=== PATIENT | male | born 1945 | race Caucasian/White ===

== ENCOUNTER 2016-11-20 16:20 | Emergency (ER) | payer MEDICARE, OTHER ==
[~2016-11-20] VITALS: Ht 172.7 cm; Wt 79.4 kg
[2016-11-20] MEDS ORDERED: TOPROL XL100 MG (16:35)
[2016-11-20] MEDS ORDERED: TOPROL XL100 MG PO (16:35)
[2016-11-20] MEDS ORDERED: ELIQUIS5 MG PO (16:36)
[2016-11-20] MEDS ORDERED: OXYCODONE HCL5 M1 PO (19:40)
[2016-11-20] MEDS ORDERED: ZOFRAN ODT4 MG PO (19:40)
[2016-11-20] MEDS ORDERED: CIPRO500 MG PO (19:40)
== END 2016-11-20 19:54 | disposition home or self-care (01) ==
LOC: ED 16:20
DX: K52.9 Noninfective gastroenteritis and colitis, unspecified (principal); I48.91 Unspecified atrial fibrillation; I10 Essential (primary) hypertension; Z79.899 Other long term (current) drug therapy
CPT/HCPCS: 74176; 74177; 80053; 85025; 85610; 85730; 86850; 86900; 86901; 99284; Q9967

== ENCOUNTER 2016-11-21 16:36 | Emergency (ER) | payer MEDICARE, OTHER ==
[~2016-11-21] VITALS: Ht 172.7 cm; Wt 79.4 kg
[~2016-11-21 16:36] MED LIST: CIPRO500 MG PO; ELIQUIS5 MG PO; OXYCODONE HCL5 M1 PO; TOPROL XL100 MG; TOPROL XL100 MG PO; ZOFRAN ODT4 MG PO
== END 2016-11-21 17:20 | disposition home or self-care (01) ==
LOC: ED 16:36
DX: K52.9 Noninfective gastroenteritis and colitis, unspecified (principal); I48.91 Unspecified atrial fibrillation; I10 Essential (primary) hypertension; Z98.890 Other specified postprocedural states; Z79.899 Other long term (current) drug therapy
CPT/HCPCS: 99282

== ENCOUNTER 2020-07-26 08:55 | Day surgery (SDC) | payer MEDICARE ==
[~2020-07-26] VITALS: Ht 172.7 cm; Wt 80.8 kg
[~2020-07-26 08:55] MED LIST changes: +ADVAIR HFA 115-12 GM INH; +CETIRIZINE HCL10 MG PO
--- NOTE | 2020-07-26 12:07 | NUR ---
07/26/20 1207 Belle Patel 1203- PT ARRIVES TO PACU AROUSABLE TO NOXIOUS STIMULI. RESP EVEN AND UNLABORED. OXYGEN SAT HIGH 90'S TO 100% ON 2L VIA OXYMASK.
[2020-07-26] MEDS ORDERED: HYDROCODON-ACE1 EAC8 PO (12:24)
--- NOTE | 2020-07-29 07:17 | OR ---
[facility] [address] [place], [place] [address] Signed DATE OF OPERATION: 07/26/2020 SURGEON: Gordo Malcolm MD PREOPERATIVE DIAGNOSIS: Right medial subcuticular scapular mass (3 cm). POSTOPERATIVE DIAGNOSIS: Epidermal cyst. PROCEDURE: Excision of epidermal cyst. ESTIMATED BLOOD LOSS: None. INDICATIONS: Raul is a 74-year-old gentleman, asked to see me for a subcutaneous mass over the superior medial aspect of the right scapula. 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 We can see various surgical scars on the skin. 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 He said this subcutaneous mass started growing last year and now it is causing pain. It is very difficult for him to work and lie on his back and so forth. He went to his primary care provider. He was then asked to see me to have it removed. In the office, I explained to Raul the nature of incision required to remove that lesion. If indeed this proved to be an epidermal cyst, the overlying skin is often quite thin. Sometimes it breaks down and has to heal in secondarily. He understands there is risk including, but not limited to bleeding, infection, scarring, change in contour of the skin as well as possible need for additional surgeries based on pathology results. He understands expected intraop and postop course. He expressed understanding and wished to proceed. DESCRIPTION OF PROCEDURE: I met with Raul in our preop area along with his lifelong significant other. We all identified the area quite readily and marked it appropriately. After this, Raul was taken in the operating room and placed in the left lateral decubitus position with appropriate padding and monitoring. He was given monitored anesthesia care per our nurse molding line operator. Local anesthetic was injected around and underneath the lesion. A vertical linear incision was made over the lesion, carried around the lesion very carefully with the help of cautery and bluntly with the hemostat. That proved to be an Electronically Signed By: GORDO MALCOLM MD 07/29/20 0717 PATIENT NAME: RAUL GONZALEZ OPERATIVE REPORT DATE OF : 41 REPORT #: [id number] PHYSICIAN: GORDO MALCOLM MD PCP: FRANCES AREVALO MD REPORT IS CONFIDENTIAL AND NOT TO BE RELEASED WITHOUT AUTHORIZATION [facility] [address] [place] [address] Signed epidermal cyst. The overlying skin was very thin. We closed the dermis with interrupted 3-0 subcuticular Monocryl sutures. We used 3-0 nylon suture to help close some of the midportion of that incision because the skin was so thin. We then used 5-0 fast absorbing plain gut suture to close the skin edges. Dry gauze and tape were then applied. Raul was then rotated in the supine position and taken to recovery room in stable condition. Gordo Malcolm MD ALB/MODL /[id number] cc: MD Gordo Mclaughlin MD Copies: GORDO MALCOLM MD ~ Electronically Signed By: GORDO MALCOLM MD 07/29/20 0717 PATIENT NAME: RAUL GONZALEZ OPERATIVE REPORT DATE OF : 41 REPORT #: [id number] PHYSICIAN: GORDO MALCOLM MD PCP: FRANCES AREVALO MD REPORT IS CONFIDENTIAL AND NOT TO BE RELEASED WITHOUT AUTHORIZATION
== END 2020-07-26 12:55 | disposition home or self-care (01) ==
LOC: DS 08:55
PROVIDERS: ATTEND Colon & Rectal Surgery
PROC: 0J970ZX Drainage of Back Subcutaneous Tissue and Fascia, Open Approach, Diagnostic (ICD-10-PCS; principal; 2020-07-26 11:15)
DX: L72.0 Epidermal cyst (principal); J45.909 Unspecified asthma, uncomplicated; I10 Essential (primary) hypertension; I48.0 Paroxysmal atrial fibrillation; Z79.01 Long term (current) use of anticoagulants; Z85.828 Personal history of other malignant neoplasm of skin; Z86.19 Personal history of other infectious and parasitic diseases; Z87.891 Personal history of nicotine dependence; Z91.048 Other nonmedicinal substance allergy status; Z91.09 Other allergy status, other than to drugs and biological substances
CPT/HCPCS: 00400; 88304; J0690; J1644; J1885; J2001; J2250; J2704; J7121

== ENCOUNTER 2021-08-08 14:18 | Emergency (ER) | payer MEDICARE ==
[~2021-08-08] VITALS: Ht 172.7 cm; Wt 79.4 kg
[~2021-08-08 14:18] MED LIST changes: +HYDROCODON-ACE1 EAC8 PO
--- NOTE | 2021-08-10 08:58 | EKG ---
[facility] [address] [place] [address] Signed Poor data quality, interpretation may be adversely affected Normal sinus rhythm Septal infarct (cited on or before 23-JUL-2020) Abnormal ECG When compared with ECG of 23-JUL-2020 13:46, Nonspecific T wave abnormality now evident in Lateral leads Confirmed by LEN REMY MD ([id number]) on 08/10/2021 8:57:48 AM Electronically Signed By: LEN REMY MD 08/10/21 0858 PATIENT NAME: RAUL GONZALEZ Electrocardiogram DATE OF : 41 PHYSICIAN: LEN REMY MD REPORT #: [id number] REPORT IS CONFIDENTIAL AND NOT TO BE RELEASED WITHOUT AUTHORIZATION
== END 2021-08-08 18:47 | disposition home or self-care (01) ==
LOC: ED 14:18
DX: I48.0 Paroxysmal atrial fibrillation (principal); I10 Essential (primary) hypertension; Z79.899 Other long term (current) drug therapy; Z79.01 Long term (current) use of anticoagulants; Z79.51 Long term (current) use of inhaled steroids
CPT/HCPCS: 93005; 93010; 99284-25

== ENCOUNTER 2023-03-03 06:58 | Day surgery (SDC) | payer MEDICARE, OTHER ==
[2023-02-24 10:17] VITALS: BP 151/76
[~2023-03-03] VITALS: Ht 172.7 cm; Wt 79.5 kg
[~2023-03-03 06:58] MED LIST changes: +AMOXICILLIN500 M1 PO; +DOXYCYCLINE HY100 MG PO; +METOPROLOL SUCC50 MG PO; +PREDNISONE20 MG PO; +VENTOLIN HFA18 GM INH; +ZYRTEC10 MG PO
[2023-03-03 07:06] VITALS: BP 151/62; BP 190/88
--- NOTE | 2023-03-03 09:21 | NUR ---
03/03/23 0921 Galina Schmitz 0915-PT TO PACU IN LL POSITION. EYES CLOSED. MOVES UPPER EXTREMITIES BUT DOES NOT FOLLOW COMMANDS. BREATHING EASY AND UNLABORED. SPO2 >95% ON ROOM AIR. 0920-PT CONTINUES TO SLEEP IN LL POSITION. EYES CLOSED. PT REPOSITIONS SELF TO COMFORT BUT DOES NOT OPEN EYES OR FOLLOW COMMANDS. BREATHING EASY AND UNLAOBRED. SPO2 >95% ON ROOM AIR.
[2023-03-03 09:57] VITALS: BP 123/56
--- NOTE | 2023-03-04 07:28 | OR ---
[facility] [place] [facility] [address] [place], [place] [address] Signed DATE OF OPERATION: 03/03/2023 SURGEON: Gordo Malcolm MD PREOPERATIVE DIAGNOSIS: Personal history of colonic polyps in 2017 at the age of 71. POSTOPERATIVE DIAGNOSES: 1. Multiple 4-6 mm polyps at 4-6 cm in rectum. 2. 5 mm polyps x2 at 10 cm in rectum. 3. 5 mm polyp at 22 cm in sigmoid colon. 4. Small lipoma at 40 cm in left colon. 5. 6 mm polyp at 38 cm in left colon. 6. Moderate diverticulosis. 7. Moderate internal and external hemorrhoids. PROCEDURE: Colonoscopy with hot biopsy. ESTIMATED BLOOD LOSS: None. INDICATIONS: Raul is a 77-year-old gentleman asked to see me for a followup colonoscopy. He has moved down from [place], [place] to [place], [place]. He said he has no lower GI complaints. There is no family history of colon cancer or polyps. He mentions his one and only colonoscopy while in [place], [place]. This was done in 2017 at the age of 71[address] Melendrez from the [facility] [address] in [place], [place]. He thinks he had at least 12 polyps removed. He has also his hepatitis C virus treated. Clear back to 2012 CT scan said he had mild cirrhosis of his liver. Apparently, he was asked to follow up in 5 years for repeat colonoscopy. In the office, I gave him a pamphlet on colonoscopy. We reviewed the nature of the test. There is risk including, but not limited to gas bloating, crampy abdominal pain, bleeding, perforation requiring surgery, and missed diagnosis. We also reviewed the written instructions for the bowel prep line by line. Given his asthma and his paroxysmal atrial fibrillation along with recent pneumonia, he was asked to undergo monitored anesthesia care with propofol infusion. That proved to be a araiza decision today. He had expressed understanding and wished to proceed. DESCRIPTION OF PROCEDURE: Electronically Signed By: GORDO MALCOLM MD 03/04/23 0728 PATIENT NAME: RAUL GONZALEZ OPERATIVE REPORT DATE OF : 41 REPORT #: [id number] PHYSICIAN: GORDO MALCOLM MD PCP: FRANCES AREVALO MD REPORT IS CONFIDENTIAL AND NOT TO BE RELEASED WITHOUT AUTHORIZATION [facility] [place] [facility] [address] [place], [place] [address] Signed Raul was taken into our endoscopy suite and placed in the left lateral decubitus position. He was given monitored anesthesia care per our nurse grey inspector. A digital rectal exam was performed and this showed multiple small circumferential external hemorrhoids. He had good sphincter tone. There were no masses. The adult colonoscope was introduced and we immediately encountered multiple small polyps in his rectum. Most were from 4 cm up to about 6 cm. 5 or 6 of those were placed in the same jar. The others were cauterized. He also had a couple of 5 mm polyps prior in the rectum around 10 cm. They were also removed with hot biopsy forceps. He then had a 5 mm polyp at 22 cm in the sigmoid colon that we removed as well. As we advanced the scope, we can see he does have moderate sigmoid diverticulosis. They are moderate in size, few in number and scattered about. We passed the scope all the way around into the cecum itself without difficulty. His prep was quite good. We could easily see the appendiceal orifice and ileocecal valve. The scope was then slowly withdrawn. He does have a small lipoma back at 40 cm in the left colon and then at 38 cm in his left colon, he had a 6 mm polyp removed with the hot biopsy forceps. Once back down in the rectum, the scope had been retroflexed, he does have moderate internal hemorrhoid columns. After this, the gas was suctioned out and the colonoscope removed. Raul tolerated the procedure quite well. RECOMMENDATIONS: I will see Raul back in my office in 7 to 14 days to review his results. Likely he will stay on the five year plan. It looks like he will need monitored anesthesia care the rest of his life. Gordo Malcolm MD ALB/MODL /[id number] cc: MD Gordo Mclaughlin MD Electronically Signed By: GORDO MALCOLM MD 03/04/23 0728 PATIENT NAME: RAUL GONZALEZ OPERATIVE REPORT DATE OF : 41 REPORT #: [id number] PHYSICIAN: GORDO MALCOLM MD PCP: FRANCES AREVALO MD REPORT IS CONFIDENTIAL AND NOT TO BE RELEASED WITHOUT AUTHORIZATION [address] [address] Signed Copies: GORDO MALCOLM MD ~ Electronically Signed By: GORDO MALCOLM MD 03/04/23 0728 PATIENT NAME: RAUL GONZALEZ JOSEPH OPERATIVE REPORT DATE OF : 41 REPORT #: [id number] PHYSICIAN: GORDO MALCOLM MD PCP: FRANCES AREVALO MD REPORT IS CONFIDENTIAL AND NOT TO BE RELEASED WITHOUT AUTHORIZATION
--- NOTE | 2023-03-04 14:59 | PATH ---
[facility] [address] [facility] [place] [address] Signed SPECIMEN(S): A RECTAL POLYP AT 4 CM SPECIMEN(S): B RECTAL POLYP AT 10 CM SPECIMEN(S): C SIGMOID POLYP AT 22 CM SPECIMEN(S): D DESCENDING/LEFT COLON POLYP AT 38 CM SPECIMEN SOURCE: A. RECTAL POLYP AT 4 CM B. RECTAL POLYP AT 10 CM C. SIGMOID POLYP AT 22 CM D. DESCENDING/LEFT COLON POLYP AT 38 CM CLINICAL HISTORY: Previous history of polyps. FINAL PATHOLOGIC DIAGNOSIS: A. Rectal polyp at 4 cm: - Hyperplastic polyp (multiple fragments). B. Rectal polyp at 10 cm: - Hyperplastic polyp (two fragments). C. Sigmoid polyp at 22 cm: - Hyperplastic polyp (one fragment). D. Descending/left colon polyp at 38 cm: - Tubular adenoma (one fragment). JVR:saida MICROSCOPIC EXAMINATION: Histologic sections of all submitted blocks are examined by light microscopy. These findings, together with the gross examination, support the pathologic diagnosis. GROSS DESCRIPTION: A. The specimen, labeled and designated "Gayle, Spencer," and designated on the requisition "colon, rectum polypectomy at 4 cm," is received in formalin and consists of multiple rich soft polypoid tissue fragments measuring 0.2 to 0.4 cm in length and up to 0.3 cm in greatest diameter, all specimens are submitted entirely in (A1). B. The specimen, labeled and designated "Gayle, B," and designated on the requisition "colon, rectum polypectomy at 10 cm," is received in formalin and consists of two rich soft tissue fragments measuring 0.3 to 0.5 cm in length and up to 0.3 cm in greatest diameter, all specimens are submitted entirely in (B1). PATIENT NAME: RAUL GONZALEZ PATHOLOGY DATE OF : 41 REPORT #: [id number] PHYSICIAN: GREG SIN PCP: FRANCES AREVALO MD REPORT IS CONFIDENTIAL AND NOT TO BE RELEASED WITHOUT AUTHORIZATION [facility] [address] [place], [place] [address] Signed C. The specimen, labeled and designated "Gayle, B," and designated on the requisition "colon, sigmoid polypectomy at 22 cm," is received in formalin and consists of one rich soft tissue fragment measuring 0.3 x 0.3 x 0.2 cm, the specimen is submitted entirely in (C1). D. The specimen, labeled and designated "Gayle, B," and designated on the requisition "colon, descending/left polypectomy at 38 cm," is received in formalin and consists of one rich soft tissue fragment measuring 0.3 x 0.3 x 0.3 cm, the specimen is submitted entirely in (D1). MMA (under the direct supervision of a pathologist) The Gross Description was prepared using a voice recognition system. The report was reviewed for accuracy; however, sound-alike word errors, addition and/or deletions may occur. If there is any question about this report, please contact Client Services. PERFORMING LABORATORY: Technical component was performed by [facility], [address] [place] [id number] (CLIA# [id number]). Professional interpretation was performed by [facility], [address] [place] [id number] (CLIA#: [id number]). Diagnostician: Yo Truong MD Pathologist Electronically Signed 03/04/2023 Copies: ~ PATIENT NAME: RAUL GONZALEZ JOSEPH PATHOLOGY DATE OF : 41 REPORT #: [id number] PHYSICIAN: GREG PATHOLOGY PCP: FRANCES AREVALO MD REPORT IS CONFIDENTIAL AND NOT TO BE RELEASED WITHOUT AUTHORIZATION
== END 2023-03-03 10:10 | disposition home or self-care (01) ==
LOC: DS 06:58 → OPS 06:58 → DS 08:15 → OPS 10:10 → DS 10:30
PROVIDERS: ATTEND Colon & Rectal Surgery
PROC: 0DBN8ZX Excision of Sigmoid Colon, Via Natural or Artificial Opening Endoscopic, Diagnostic (ICD-10-PCS; 2023-03-03)
PROC: 0DBP8ZX Excision of Rectum, Via Natural or Artificial Opening Endoscopic, Diagnostic (ICD-10-PCS; 2023-03-03)
PROC: 0DBG8ZX Excision of Left Large Intestine, Via Natural or Artificial Opening Endoscopic, Diagnostic (ICD-10-PCS; 2023-03-03)
PROC: 0DBM8ZX Excision of Descending Colon, Via Natural or Artificial Opening Endoscopic, Diagnostic (ICD-10-PCS; principal; 2023-03-03 08:15)
DX: D12.4 Benign neoplasm of descending colon (principal); K63.5 Polyp of colon; K62.1 Rectal polyp; K57.30 Diverticulosis of large intestine without perforation or abscess without bleeding; K64.8 Other hemorrhoids; K64.4 Residual hemorrhoidal skin tags; J45.909 Unspecified asthma, uncomplicated; I48.0 Paroxysmal atrial fibrillation; I10 Essential (primary) hypertension; B18.2 Chronic viral hepatitis C; E78.5 Hyperlipidemia, unspecified; N52.9 Male erectile dysfunction, unspecified; Z79.899 Other long term (current) drug therapy; Z86.010 Personal history of colon polyps
CPT/HCPCS: 00811; 88305; J2001; J2704; J3010; J7121

== ENCOUNTER 2024-03-17 10:42 | Emergency (ER) | payer MEDICARE, OTHER ==
[~2024-03-17] VITALS: Ht 172.7 cm; Wt 81.2 kg
[2024-03-17] MEDS ORDERED: ATORVASTATIN CA40 MG PO (14:19)
[2024-03-17] MEDS ORDERED: FLUTICASONE-SA1 EAC4 (14:19)
[2024-03-17] MEDS ORDERED: FAMCICLOVIR500 MG PO (14:52)
[2024-03-17] MEDS ORDERED: HYDROCODON-ACE1 EA10 PO (14:52)
[2024-03-17] MEDS ORDERED: ACYCLOVIR 400 MG TAB PO ONE (15:00)
[2024-03-17] MEDS ORDERED: HYDROCODONE/ACETA 5/325 TAB PO ONE (15:00)
[2024-03-17 15:05] VITALS: BP 155/81
== END 2024-03-17 15:05 | disposition home or self-care (01) ==
LOC: ED 10:42
DX: B02.9 Zoster without complications (principal); I10 Essential (primary) hypertension; Z79.899 Other long term (current) drug therapy; Z79.01 Long term (current) use of anticoagulants
CPT/HCPCS: 99282; A9270

== ENCOUNTER 2024-08-27 21:54 | Emergency (ER) | payer MEDICARE, OTHER ==
[~2024-08-27] VITALS: Ht 175.3 cm; Wt 80.7 kg
[~2024-08-27 21:54] MED LIST changes: +ATORVASTATIN CA40 MG PO; +FAMCICLOVIR500 MG PO; +FLUTICASONE-SA1 EAC4; +HYDROCODON-ACE1 EA10 PO
[2024-08-27 22:32] LABS: BASOPHILS 0.4 % (0.2-1.2); EOSINOPHILS 0.6 % (0.8-7.0); HEMATOCRIT 46.5 % (40.1-51.0); HEMOGLOBIN 15.6 g/dL (13.7-17.5); LYMPHOCYTES 12.5 % (21.8-53.1); MCH 31.1 PG (25.7-32.2); MCHC 33.5 g/dL (32.3-36.5); MCV 92.8 fL (79.0-92.2); MONOCYTES 11.4 % (5.3-12.2); NEUTROPHILS 74.8 % (34.0-67.9); PLATELET COUNT 163 K/uL (163-337); RBC 5.01 M/uL (4.63-6.08)
[2024-08-27 22:49] LABS: ALBUMIN 3.6 g/dL (3.4-5.0); ALBUMIN/GLOBULIN RATIO 0.97 (1.1-2.4); ANION GAP 14.9 (7-21); BILIRUBIN, TOTAL 1.5 mg/dL (0.2-1.0); BUN/CREATININE RATIO 22.98 (6.0-28.6); CALCIUM 8.9 mg/dL (8.5-10.1); CREATININE, SERUM 0.87 mg/dL (0.70-1.30); POTASSIUM 3.9 mmol/L (3.5-5.1); PROTEIN, TOTAL 7.3 g/dL (6.4-8.2)
[2024-08-27 23:02] LABS: BILIRUBIN, URINE POSITIVE (negative); BLOOD/HGB, URINE SMALL (Negative); KETONE, URINE SMALL (Negative); LEUK ESTERASE, URINE NEGATIVE (negative); NITRITE, URINE NEGATIVE (negative)
[2024-08-27 23:25] LABS: CRYSTALS, URINE NONE SEEN (0-1+); EPITHELIAL CELLS, URINE SQUAMOUS 1+ /lpf (0-1+)
[2024-08-27 23:26] LABS: BACTERIA, URINE RARE /hpf (negative); CASTS, URINE NONE SEEN \\lpf; COLLECTION TYPE, URINE CLEAN CATCH; REFLEX CULTURE, URINE No (No)
[2024-08-28] MEDS ORDERED: SIMETHICONE180 MG PO (01:40)
[2024-08-28] MEDS ORDERED: ONDANSETRON ODT8 MG PO (01:40)
[2024-08-28] MEDS ORDERED: ONDANSETRON 4 MG HOME.PACK SL ONE (02:00)
[2024-08-28 02:04] VITALS: BP 145/70
== END 2024-08-28 02:04 | disposition home or self-care (01) ==
LOC: ED 21:54
PROVIDERS: Family Medicine
DX: A08.4 Viral intestinal infection, unspecified (principal); R16.0 Hepatomegaly, not elsewhere classified; R74.01 Elevation of levels of liver transaminase levels; I48.91 Unspecified atrial fibrillation; I10 Essential (primary) hypertension; Z79.51 Long term (current) use of inhaled steroids; Z79.899 Other long term (current) drug therapy; Z91.048 Other nonmedicinal substance allergy status
CPT/HCPCS: 36415; 71045; 74018; 76705; 80053; 81001; 85025; 99284-25; A9270; U0002